=== PATIENT | female | born 1955 | race Two or more races ===

== ENCOUNTER 2024-08-10 03:31 | Emergency (ER) | payer OTHER ==
[~2024-08-10] VITALS: Ht 170.2 cm; Wt 69.4 kg
[2024-08-10] MEDS ORDERED: HALOPERIDOL LACTATE 5 MG/ML AMPUL IM STA (04:39)
[2024-08-10] MEDS ORDERED: PROMETHAZINE HCL 25 MG/ML AMPUL IM STA (04:40)
[2024-08-10] MEDS ORDERED: DIPHENHYDRAMINE HCL 50 MG/ML VIAL 1ML IM STA (04:40)
== END 2024-08-10 07:29 | disposition home or self-care (01) ==
LOC: ER 03:32
DX: G43.909 Migraine, unspecified, not intractable, without status migrainosus (principal); Z88.0 Allergy status to penicillin
CPT/HCPCS: 96372; 99282; J1200; J1630; J2250